=== PATIENT | male | born 1950 | race Caucasian/White ===

== ENCOUNTER 2017-04-09 16:15 | Emergency (ER) | payer OTHER, MEDICAID ==
[~2017-04-09] VITALS: Ht 162.6 cm; Wt 68.0 kg
[2017-04-09 19:41] VITALS: BP 150/94
== END 2017-04-09 19:41 | disposition home or self-care (01) ==
LOC: ED 16:15
DX: S00.81XA Abrasion of other part of head, initial encounter (principal); S80.212A Abrasion, left knee, initial encounter; R03.0 Elevated blood-pressure reading, without diagnosis of hypertension; F11.20 Opioid dependence, uncomplicated; V09.9XXA Pedestrian injured in unspecified transport accident, initial encounter; Y93.89 Activity, other specified; Y92.89 Other specified places as the place of occurrence of the external cause; Y99.8 Other external cause status
CPT/HCPCS: 82962